=== PATIENT | female | born 1950 | race Caucasian/White ===

== ENCOUNTER 2017-02-03 12:23 | Outpatient (CLI) | payer MEDICARE, MEDICAID | END 2017-02-03 12:24 | disposition home or self-care (01) | LOC: NC 12:23 | PROVIDERS: ATTEND Family Medicine | DX: E11.69 Type 2 diabetes mellitus with other specified complication (principal); Z71.3 Dietary counseling and surveillance; Z68.32 Body mass index [BMI] 32.0-32.9, adult; E66.9 Obesity, unspecified ==